=== PATIENT | male | born 1955 | race Asian ===

== ENCOUNTER 2024-06-21 07:13 | Emergency (ER) | payer OTHER, SELFPAY ==
--- NOTE | ~2024-06-21 | CT_ITS ---
EXAMINATION: CT ABDOMEN AND PELVIS WITH CONTRAST CLINICAL INFORMATION: Left lower quadrant pain COMPARISON: None available. TECHNIQUE: Multidetector volumetric images were obtained from the superior aspect of the liver through the pubic symphysis following administration 85 mL of Omnipaque 350 intravenous contrast. Sagittal and coronal reformatted images were obtained on the technologist's workstation. Oral contrast: No This CT examination was performed using dose optimization techniques as appropriate, variously including the following: *Automated exposure control *Adjustment of mA and/or kV according to patient size (this includes techniques or standardized protocols for targeted exams where dose is matched to indication/reason for exam; i.e. extremities or head) *Use of iterative reconstruction technique DLP: 612 mGy-cm FINDINGS: LUNG BASES: The visualized lung bases are unremarkable. LIVER, GALLBLADDER, AND BILIARY TREE: The liver is normal in size, shape, and attenuation. No focal hepatic lesion or biliary ductal dilatation is present. The gallbladder is unremarkable with no evidence of radiopaque gallstones, gallbladder wall thickening, or obvious pericholecystic inflammatory changes. PANCREAS: Unremarkable. SPLEEN: Unremarkable. ADRENAL GLANDS: Unremarkable. KIDNEYS AND URETERS: The kidneys are normal in size, shape, and attenuation. No hydronephrosis, hydroureter, or calculi seen. No perinephric stranding. BLADDER: Unremarkable. GASTROINTESTINAL TRACT: No bowel obstruction or right lower quadrant inflammatory change. Moderate stool burden. Appendix normal. There does appear to be decompression of the sigmoid and rectosigmoid with slight mural thickening. I cannot exclude a mild proctitis or colitis. No drainable collections. No perforation. ABDOMINAL WALL: No significant hernia is appreciated. LYMPH NODES: Normal. VASCULAR: Aorta is atherosclerotic but nonaneurysmal. PELVIC VISCERA: Prominent prostate. Multiple pelvic phleboliths noted. OSSEOUS STRUCTURES: Degenerative changes lower lumbar spine. CT/CT abdomen pelvis w IV con IMPRESSION: Slightly thick-walled rectosigmoid versus in appearance based on the compression. No proximal obstruction. Fleischner guidelines were followed. Electronically signed by: Joshua Gaspar MD 06/21/2024 11:15 AM EDT
--- NOTE | ~2024-06-21 | XR_ITS ---
EXAMINATION: XR ABDOMEN KUB CLINICAL INDICATION: Abdominal pain COMPARISON: None available. TECHNIQUE: AP view of the abdomen. FINDINGS: The bowel gas pattern is unremarkable with no evidence of ileus or obstruction. Moderate stool is present in the colon. No unusual soft tissue calcifications are noted. Phleboliths are seen in the pelvis and a triangular sclerotic density is present adjacent to the left SI joint. No fractures are seen. XR/XR KUB IMPRESSION: No evidence of bowel obstruction. Moderate stool in the colon. Electronically signed by: Bipin Huffman MD 06/21/2024 08:45 AM EDT
[2024-06-21 07:18] VITALS: BP 119/74; PULSE 89; RESP 16; TEMP 36.6; O2SAT 97; BMI 26.3
[2024-06-21 07:53] VITALS: BP 122/77; PULSE 84; RESP 16; O2SAT 96
[2024-06-21 07:56] LABS: Basophils Absolute Auto 0.1 X10*3/uL (0.0-0.2); Basophils Percent Auto 0.4 % (0-2); Eosinophils Absolute Auto 0.3 X10*3/uL (0.0-0.4); Eosinophils Percent Auto 1.7 % (0-4); Hematocrit 40.9 % (42.0-52.0); Hemoglobin 14.1 g/dl (14.0-18.0); Imm Gran Abs Auto 0.11 X10*3/uL (0.00-0.03); Imm Gran Pct Auto 0.8 % (0.0-0.4); Lymphocytes Absolute Auto 2.1 X10*3/uL (1.2-4.9); Lymphocytes Percent Auto 14.2 % (20-40); MANUAL DIFF FLAG SCAN; Mean Corpuscular HGB Conc 34.5 g/dl (31.0-36.0); Mean Corpuscular Volume 81.3 fL (80.0-98.0); Mean Platelet Volume 10.2 fL (9.4-12.4); Monocytes Absolute Auto 1.6 X10*3/uL (0.1-1.2); Monocytes Percent Auto 11.1 % (2-11); Neutrophils Absolute Auto 10.5 x10*3/uL (2.0-8.3); Neutrophils Percent Auto 71.8 % (45-73); Platelet Count 258 X10*3/uL (160-400); Red Blood Count 5.03 X10*6/uL (4.60-5.80); SCAN SMEAR FLAG 1; White Blood Count 14.6 X10*3/uL (4.8-10.8)
[2024-06-21 08:06] LABS: Appearance Urine Clear; Color Urine Yellow; Glucose Urine UA Negative (Negative); Leukocyte Esterase Urine Negative (Negative); Nitrite Urine Negative (Negative); PH 6.5 (5.0-9.0); Urine Blood Negative (Negative); Urine Ketones Negative (Negative); Urine Protein Trace mg/dL (Neg-Trace)
--- NOTE | 2024-06-21 08:08 | ED_ITS ---
HPI - Abdominal Pain General Chief Complaint: Abdominal Pain Stated Complaint: Constipation, fever Time Seen by Provider: 06/21/24 07:51 History of Present Illness HPI narrative: Patient is a 68-year-old male presented today with having episodes of constipation after Ozempic for prediabetes. Patient took some MiraLax then some Colace with good relief of the constipation. But developed a fever that is proximally 101. Patient took the temperature temporally. Complaining of pain achiness over the left lower quadrant that is slowly developing. Patient denies any history of colonoscopy. No cough no congestion or upper respiratory symptoms. No pain on urination. Patient is from the [facility] area. Visiting here. Has a history of coronary artery disease. Status post stent in the past. Currently on clopidogrel. Related Data Previous Rx's ?Medication ?Instructions ?Recorded amoxicillin 875 mg-potassium 1 tab PO BID #14 tabs 06/21/24 clavulanate 125 mg tablet Allergies Allergy/AdvReac Type Severity Reaction Status Date / Time No Known Allergies Allergy Verified 06/21/24 07:21 Review of Systems Review of Systems Abdominal pain Yes all other systems are reviewed and are negative [facility] Past Medical History Attestation statement: The following information was validated with the patient. Social History Social History Smoked in Last 30 Days: No Use of substances other than those prescribed or required for medical reasons: No Advance Directives: No Advance Directives Information Provided: Yes Physical Exam ED Vital Signs: Vital Signs - 24 hr 06/21/24 07:18 06/21/24 07:53 06/21/24 09:20 Temperature 97.8 F 98.5 F Pulse Rate 89 84 75 Respiratory Rate 16 16 14 Blood Pressure 119/74 122/77 138/73 Pulse Oximetry 97 96 99 Oxygen Delivery Method Room Air Room Air Room Air BMI result Body Mass Index 26.3 Appearance: Alert. Oriented X3. No acute distress. Eyes: Pupils equal, round and reactive to light. ENT: Pharynx normal. Neck: Normal inspection. Neck supple. No lymph nodes noted. No crepitus CVS: Normal heart rate and rhythm. Pulses normal. Normal S1 and S2 Respiratory: No respiratory distress. Breath sounds normal. No Wheezing. No rales Abdomen: Soft, positive left lower quadrant tenderness no rebound or guarding. No rigidity. No distention. good BS x4 Skin: Skin warm and dry. Normal skin color. Normal skin turgor. Extremities: No lower extremity edema. Neurovascular intact to all extremities. No Lacerations. No Rash Neuro: Oriented X 3. No motor deficit. No sensory deficit. Moving all extermities. No slurred speech Medical Decision Making Medical Decision Making [facility] Narrative: Patient has left lower abdominal pain. CT scan of the abdomen pelvis showed no acute obstruction abscess perforation it does showed a question very mild colitis in the sigmoid colon. Will start patient on Augmentin. Patient has electrolytes drawn which showed a sodium of 128. He is not on any water pill. He does look a little bit dehydrated. Will ask patient to hydrate will ask patient to closely follow-up with his primary physician. He states that he can get back to [place] in follow-up with his primary. Patient's LFT and lipase are normal. No evidence for biliary disease. His urine was negative for infection. His flu RSV COVID were all negative. Currently in stable condition. Will discharge home on Augmentin Differential Diagnosis Differential Diagnoses: The differential diagnosis associated with the presentation includes Obstruction, abscess, perforation, kidney stone, diverticulitis Admission/Observation Consideration of admission/observation: Escalation of care including admission/observation considered Lab Data [facility] Lab Attestation statement: I reviewed the patient's lab results. 06/21/24 07:45 06/21/24 07:45 Labs: Lab Results 06/21/24 06/21/24 06/21/24 Range/Units 07:45 07:57 08:15 WBC 14.6 H (4.8-10.8) X10*3/uL RBC 5.03 (4.60-5.80) X10*6/uL Hgb 14.1 (14.0-18.0) g/dl Hct 40.9 L (42.0-52.0) % MCV 81.3 (80.0-98.0) fL MCH 28.0 (27.0-33.0) pg MCHC 34.5 (31.0-36.0) g/dl RDW 14.0 (11.0-16.0) % Plt Count 258 (160-400) X10*3/uL MPV 10.2 (9.4-12.4) fL Immature Gran % (Auto) 0.8 H (0.0-0.4) % Neut % (Auto) 71.8 (45-73) % Lymph % (Auto) 14.2 L (20-40) % Nolan % (Auto) 11.1 H (2-11) % Eos % (Auto) 1.7 (0-4) % Baso % (Auto) 0.4 (0-2) % Lymph # (Auto) 2.1 (1.2-4.9) X10*3/uL Nolan # (Auto) 1.6 H (0.1-1.2) X10*3/uL Eos # (Auto) 0.3 (0.0-0.4) X10*3/uL Baso # (Auto) 0.1 (0.0-0.2) X10*3/uL Abs Immat Gran (auto) 0.11 H (0.00-0.03) X10*3/uL Absolute Neuts (auto) 10.5 H (2.0-8.3) x10*3/uL Absolute Nucleated RBC 0.000 (0.0-0.012) X10*3/uL Nucleated RBC % (auto) 0.0 (0.0-0.2) /100WBC Smear Tech's Comments VERIFIED Sodium 128 L (135-145) mmol/L Potassium 4.0 (3.3-5.1) mmol/L Chloride 99 (96-108) mmol/L Carbon Dioxide 23 (22-29) mmol/L Anion Gap 10 L (12-20) BUN 9 (9-16) mg/dL Creatinine 0.87 (0.5-1.4) mg/dL Estim Creat Clear Calc 91.6 Estimated GFR > 60 Random Glucose 106 (60-115) mg/dL Calcium 9.2 (8.4-10.2) mg/dL Magnesium 2.1 (1.6-2.6) mg/dL Total Bilirubin 0.8 (0.0-1.0) mg/dL AST 19 (5-37) U/L ALT 25 (0-40) U/L Alkaline Phosphatase 49 (39-117) U/L Total Protein 6.8 (6.5-8.0) g/dL Albumin 3.9 (3.5-5.0) g/dL Lipase 38 (8-78) U/L Urine Color Yellow Urine Appearance Clear Urine pH 6.5 (5.0-9.0) Ur Specific [place] 1.020 (1.005-1.025) Urine Protein Trace (Neg-Trace) mg/dL Urine Glucose (UA) Negative (Negative) mg/dL Urine Ketones Negative (Negative) mg/dL Urine Blood Negative (Negative) Urine Nitrite Negative (Negative) Ur Leukocyte Esterase Negative (Negative) Urine RBC 0-2 (0-2) /HPF Urine WBC 0-5 (0-5) /HPF Ur Squamous Epith Cells 0-2 (0-2) /HPF Urine Bacteria None Seen (None Seen) Hyaline Casts 0-2 (0-2) /LPF Influenza Type A (PCR) NEGATIVE (Negative) Influenza Type B (PCR) NEGATIVE (Negative) RSV RNA Qual (PCR) NEGATIVE (Negative) SARS-CoV-2 RNA (RT-PCR) NEGATIVE (Negative) Independent Interpretation I performed an independent interpretation of an: CT Scan (No overt obstruction noted) Radiology Impression Discussion of test interpretation with radiology: I have reviewed the radiologist's reading. Independent Historian Clinical information obtained from an independent historian. History obtained from or confirmed by: Spouse Chronic Conditions Patient?s care impacted by: Diabetes and Hypertension Hypercholesterolemia Medications Administered Discontinued Medications Generic Name Dose Route Start Last Admin Trade Name Freq PRN Reason Stop Dose Admin Sodium Chloride 1,000 mls @ 999 mls/hr 06/21/24 08:15 06/21/24 09:26 Ns IV 06/21/24 09:15 Infused .Q1H1M LIZZY Infusion Iohexol 100 ml 06/21/24 09:15 06/21/24 09:16 Iohexol 350 Mg/Ml 100 Ml Infus..Btl IV 06/21/24 09:16 85 ml ONCE ONE Administration Ketorolac Tromethamine 15 mg 06/21/24 08:07 06/21/24 08:21 Ketorolac Tromethamine 15 Mg/Ml Vial IVPUSH 06/21/24 08:08 15 mg ONCE ONE Administration Discharge Plan Discharge Clinical Impression: Acute hyponatremia, Colitis Patient Disposition: Home, Self-Care Instructions: Hyponatremia (ED), Colitis (ED) Prescriptions: New amoxicillin-pot clavulanate 875-125 mg tablet 1 tab PO BID Qty: 14 0RF Referrals: Byron Garcia MD [Primary Care Provider] - 06/23/24 Print Language: Upper Sorbian
[2024-06-21 08:09] LABS: Alanine Aminotransferase 25 U/L (0-40); Albumin Level 3.9 g/dL (3.5-5.0); Alkaline Phosphatase 49 U/L (39-117); Anion Gap 10 (12-20); Aspartate Amino Transferase 19 U/L (5-37); Bilirubin Total 0.8 mg/dL (0.0-1.0); Blood Urea Nitrogen 9 mg/dL (9-16); Calcium 9.2 mg/dL (8.4-10.2); Carbon Dioxide 23 mmol/L (22-29); Chloride 99 mmol/L (96-108); Creatinine Clr Calc Pharmacy 91.6; Estimated Glomerular Filt Rate > 60; Glucose Random 106 mg/dL (60-115); Magnesium 2.1 mg/dL (1.6-2.6); Sodium 128 mmol/L (135-145); Total Protein 6.8 g/dL (6.5-8.0)
[2024-06-21 08:12] LABS: Bacteria Urine None Seen (None Seen); Hyaline Casts Urine 0-2 /LPF (0-2); RBC Urine 0-2 /HPF (0-2); Squamous Epithelial Cell Urine 0-2 /HPF (0-2); WBC Urine 0-5 /HPF (0-5)
[2024-06-21 08:17] LABS: SLIDE REVIEW VERIFIED
[2024-06-21] MEDS: Ketorolac Tromethamine 15 MG/ML VIAL IVPUSH (08:21)
[2024-06-21] MEDS: 0.9 % Sodium Chloride 1,000 ML 999 ML IV (08:22)
--- NOTE | 2024-06-21 08:22 | PC.NURSE ---
20gIV placed in the right AC - labs obtained/sent to lab. IVF/medication administered per provider order. effectiveness pending. pt waiting to go to CT at this time. plan of care ongoing. call marmolejo placed within reach.
[2024-06-21 08:37] LABS: Lipase 38 U/L (8-78)
[2024-06-21 08:42] LABS: Influenza A PCR NEGATIVE (Negative); Influenza B PCR NEGATIVE (Negative); Resp Syncy Virus RNA Qual PCR NEGATIVE (Negative); SARS COV2 PCR INHOUSE NEGATIVE (Negative)
--- NOTE | 2024-06-21 09:00 | PC.NURSE ---
pt to CT at this time.
[2024-06-21] MEDS: iohexoL 350 MG/ML 100 ML INFUS..BTL IV (09:16)
[2024-06-21 09:20] VITALS: BP 138/73; PULSE 75; RESP 14; TEMP 36.9; O2SAT 99
[2024-06-21 14:21] VITALS: BP 145/81; PULSE 80; RESP 14; O2SAT 100
[2024-06-21 14:39] VITALS: BP 145/81; PULSE 80; RESP 14; TEMP 36.8; O2SAT 100
== END 2024-06-21 14:40 | disposition home or self-care (01) ==
PROVIDERS: Physician Assistant Medical; Emergency Provider Emergency Medicine Emergency Medical Services; PCP Family Medicine
DX: K52.9 Noninfective gastroenteritis and colitis, unspecified (principal); E87.1 Hypo-osmolality and hyponatremia; R50.9 Fever, unspecified; Z03.818 Encounter for observation for suspected exposure to other biological agents ruled out; Z79.899 Other long term (current) drug therapy
CPT/HCPCS: 0241U; 36415; 74018; 74177; 80053; 81001; 83690; 83735; 85025; 96361; 96374; 99284; 99285; J1885; Q9967